=== PATIENT | male | born 1975 | race Caucasian/White ===

== ENCOUNTER 2020-01-07 15:38 | Emergency (ER) | payer OTHER ==
[~2020-01-07] VITALS: Ht 175.3 cm; Wt 96.2 kg
[2020-01-07 15:52] VITALS: BP 123/84
--- NOTE | 2020-01-07 15:55 | NUR ---
WAIT AT LOBBY
--- NOTE | 2020-01-07 16:59 | NUR ---
pt amb to bed 6 with steady gait
--- NOTE | 2020-01-07 17:01 | NUR ---
C/O LAC WOUND TO R THUMBNAIL S/P SMASHED BY MACHINE AT WORK X TODAY X APPROX 1430. SITE HAS SOME BLEEDING, CONTROLLED WITH GAUZE. PT STATES PAIN 01/30. PT REPORTS HE HAS NOT HAD PAIN MEDICATION YET. PT ALERT AND AWAKE. PT LAST TDAP UNKNOWN. MED HX: DENIES
[2020-01-07] MEDS ORDERED: HYDROcodone/APAP 7.5/325 MG 1 TAB PO ONE (17:05)
[2020-01-07] MEDS ORDERED: LIDOCAINE MPF 1% 10 MG/ML VIAL INJ ONE ×2 (17:05→19:05)
--- NOTE | 2020-01-07 17:05 | NUR ---
RENEE ROBBINS AT BEDSIDE
--- NOTE | 2020-01-07 17:13 | NUR ---
XRAY AT BEDSIDE
--- NOTE | 2020-01-07 17:26 | NUR ---
ALEXANDER ADMINISTERED. PT INSTRUCTED THAT HE CANT DRIVE AFTER TAKING THIS PILL. PT STATES FAMILY IS DRIVING HIM HOME
--- NOTE | 2020-01-07 17:27 | NUR ---
PT SIGNED CONSENT FORM FOR TDAP
[2020-01-07] MEDS ORDERED: BACITRACIN OINT 500 UNITS/GM PKT TP ONE ×3 (17:32→19:05)
[2020-01-07] MEDS: BACITRACIN OP OINT 500 UNITS/GM 3.5 GM TUBE OP SCH ×2 (17:37→19:15)
[2020-01-07] MEDS ORDERED: LIDOCAINE MPF 1% 5 ML ONE (18:26)
--- NOTE | 2020-01-07 18:31 | NUR ---
RENEE ROBBINS AT BEDSIDE PERFORMING LAC REPAIR
--- NOTE | 2020-01-07 19:04 | NUR ---
Patient discharged with v/s stable. Written and verbal after care instructions given and explained. Patient alert, oriented and verbalized understanding of instructions. Ambulatory with steady gait. All questions addressed prior to discharge. ID band removed. Patient advised to follow up with PMD. Rx of KEFELX, BACITRACIN, NAPROSYN given. Patient educated on indication of medication including possible reaction and side effects. Opportunity to ask questions provided and answered.
[2020-01-07 19:05] VITALS: BP 123/84
--- NOTE | 2020-01-07 19:16 | NUR ---
GAVE REPORT TO KHLOE VALDEZ
== END 2020-01-07 19:04 | disposition home or self-care (01) ==
LOC: MED 15:38
DX: S61.011A Laceration without foreign body of right thumb without damage to nail, initial encounter (principal); W23.0XXA Caught, crushed, jammed, or pinched between moving objects, initial encounter; Y93.89 Activity, other specified; Y92.89 Other specified places as the place of occurrence of the external cause; Y99.8 Other external cause status
CPT/HCPCS: 12001; 73140; 90471; 90715; 99283; J2001; Q0092